=== PATIENT | male | born 1980 | race American Indian/Alaskan Native ===

== ENCOUNTER 2022-06-27 18:17 | Emergency (ER) | payer SELFPAY ==
[2022-06-27] MEDS ORDERED: predniSONE 50 MG TAB PO STA (23:58)
[2022-06-27] MEDS ORDERED: oxyCODONE /ACETAMINOPHEN 5-325MG TAB PO ONE (23:59)
--- NOTE | 2022-06-28 00:04 | Emergency Department Report ---
ED ENT HPI - General Chief complaint: Headache Stated complaint: SINUS HEADACHE Time Seen by Provider: 06/27/22 23:57 Source: patient Mode of arrival: Ambulatory Limitations: No Limitations - History of Present Illness Initial comments: c/o recurrent sinus infections for years and now treating current sinus infection for the last 1 week but meds not working well. He request his usual script. -: Gradual Severity: moderate Consistency: constant Improves with: none Worsens with: none Associated Symptoms: denies: gum swelling, toothache, pain with swallowing, tinnitus, hearing loss, rhinorrhea - Related Data Previous Rx's Medication Instructions Recorded Last Taken Type Acetaminophen/Codeine [Tylenol 1 tab PO Q6H PRN #14 tab 06/28/22 Unknown Rx /Codeine # 3 tab] Doxycycline Hyclate 100 mg PO BID #20 cap 06/28/22 Unknown Rx predniSONE [Deltasone] 50 mg PO ONCE #5 tablet 06/28/22 Unknown Rx Allergies Allergy/AdvReac Type Severity Reaction Status Date / Time No Known Allergies Allergy Unverified 06/27/22 19:21 ED Dental HPI - General Chief complaint: Headache Stated complaint: SINUS HEADACHE Time Seen by Provider: 06/27/22 23:57 Source: patient Mode of arrival: Ambulatory Limitations: No Limitations - Related Data Previous Rx's Medication Instructions Recorded Last Taken Type Acetaminophen/Codeine [Tylenol 1 tab PO Q6H PRN #14 tab 06/28/22 Unknown Rx /Codeine # 3 tab] Doxycycline Hyclate 100 mg PO BID #20 cap 06/28/22 Unknown Rx predniSONE [Deltasone] 50 mg PO ONCE #5 tablet 06/28/22 Unknown Rx Allergies Allergy/AdvReac Type Severity Reaction Status Date / Time No Known Allergies Allergy Unverified 06/27/22 19:21 ED Review of Systems ROS: Stated complaint: SINUS HEADACHE Other details as noted in HPI Comment: All other systems reviewed and negative ED Past Medical Hx - Past Medical History Previous Medical History?: No - Surgical History Past Surgical History?: No - Social History Smoking Status: Current Every Day Smoker Substance Use Type: Marijuana - Medications Home Medications: Home Medications Medication Instructions Recorded Confirmed Last Taken Type Acetaminophen/Codeine [Tylenol 1 tab PO Q6H PRN #14 tab 06/28/22 Unknown Rx /Codeine # 3 tab] Doxycycline Hyclate 100 mg PO BID #20 cap 06/28/22 Unknown Rx predniSONE [Deltasone] 50 mg PO ONCE #5 tablet 06/28/22 Unknown Rx ED Physical Exam - General Limitations: No Limitations General appearance: alert, in no apparent distress - Head Head exam: Present: atraumatic, normocephalic - Eye Eye exam: Present: normal appearance, PERRL - ENT ENT exam: Present: mucous membranes moist - Expanded ENT Exam Expanded Ear exam: Present: normal external inspection. Absent: auricular hematoma, auricular trauma Throat exam: Positive: normal inspection, other (nasal congestion with maxillary sinus tenderness. ) - Neck Neck exam: Present: normal inspection - Respiratory Respiratory exam: Present: normal lung sounds bilaterally. Absent: respiratory distress - Cardiovascular Cardiovascular Exam: Present: regular rate, normal rhythm. Absent: systolic murmur, diastolic murmur, rubs, gallop - GI/Abdominal GI/Abdominal exam: Present: soft, normal bowel sounds - Rectal Rectal exam: Present: deferred - Extremities Exam Extremities exam: Present: normal inspection, normal capillary refill - Back Exam Back exam: Present: normal inspection, CVA tenderness (L) - Neurological Exam Neurological exam: Present: alert, oriented X3 - Psychiatric Psychiatric exam: Present: normal affect, normal mood - Skin Skin exam: Present: warm, dry, intact, normal color. Absent: rash ED Course Vital Signs 06/27/22 19:21 Temperature 99.0 F Pulse Rate 72 Respiratory 16 Rate Blood Pressure 145/91 O2 Sat by Pulse 100 Oximetry Critical care attestation.: If time is entered above; I have spent that time in minutes in the direct care of this critically ill patient, excluding procedure time. ED Disposition Clinical Impression: Sinusitis, Sinus headache Disposition: 01 HOME / SELF CARE / HOMELESS Is pt being admited?: No Does the pt Need Aspirin: No Condition: Stable Instructions: Sinusitis, Adult, [id number], Sinus Headache, [id number], Tension Headache, Adult, [id number] Prescriptions: predniSONE [Deltasone] 50 mg PO ONCE #5 tablet Doxycycline Hyclate 100 mg PO BID #20 cap Acetaminophen/Codeine [Tylenol /Codeine # 3 tab] 1 tab PO Q6H PRN #14 tab PRN Reason: headache Referrals: [facility] [Provider Group] - 3-5 Days
[2022-06-28 00:25] VITALS: BP 149/93
== END 2022-06-29 00:25 | disposition home or self-care (01) ==
LOC: ED 18:17
DX: J32.9 Chronic sinusitis, unspecified (principal); R51.9 Headache, unspecified; F17.200 Nicotine dependence, unspecified, uncomplicated; F12.90 Cannabis use, unspecified, uncomplicated; Z79.899 Other long term (current) drug therapy
CPT/HCPCS: 99282; J7512